=== PATIENT | female | born 1935 | race Caucasian/White ===

== ENCOUNTER 2017-07-12 06:02 | Inpatient (IN) | payer OTHER, MEDICARE ==
[2017-07-12] MEDS ORDERED: LR 1,000 ML IV ONE (06:43)
[2017-07-12] MEDS ORDERED: MIDAZOLAM 2 MG/2 ML VIAL IVP ONE (06:59)
--- NOTE | 2017-07-12 07:00 | PDANEPAE ---
ANE History of Present Illness here for R TKA ANE Past Medical History - Cardiovascular History Hx Hypertension: No Hx Arrhythmias: No Hx Chest Pain: No Hx Coronary Artery / Peripheral Vascular Disease: No Hx CHF / Valvular Disease: No Hx Palpitations: No - Pulmonary History Hx COPD: No Hx Asthma/Reactive Airway Disease: No Hx Recent Upper Respiratory Infection: No Hx Oxygen in Use at Home: No Hx Sleep Apnea: No Sleep Apnea Screening Result - Last Documented: Negative - Neurologic History Hx Cerebrovascular Accident: No Hx Seizures: No Hx Dementia: No - Endocrine History Hx Diabetes: No Obesity: no - Renal History Hx Renal Disorders: No - Liver History Hx Hepatic Disorders: No - Neurological & Psychiatric Hx Hx Neurological and Psychiatric Disorders: No - Cancer History Hx Cancer: No - Congenital Disorder History Hx Congenital Disorders: No - GI History GERD: no Hx Gastrointestinal Disorders: No - Other Health History Other Health History: OSTEOARTHRITIS. BOTTOM OF LT FOOT NUMB - Chronic Pain History Chronic Pain: Yes (RT HIP) - Surgical History Prior Surgeries: ELFEGO TOTAL HIP. ORIF RT WRIST. ORIF RT THUMB WITH POST HARDWARE REMVL. LT WRIST FX. LUMBAR LAMINECTOMY. ELFEGO KNEE SCOPES. TONSILLECTOMY ANE Review of Systems Review of systems is: negative Review of Systems: - Exercise capacity Exercise capacity: >=4 METS METS (RN): 4 METS ANE Patient History - Allergies Allergies/Adverse Reactions: oxycodone HCl [From Percocet] Allergy (Intermediate, Verified 06/26/10 16:19) Constipation ciprofloxacin [From Cipro] Allergy (Verified 07/05/17 16:25) Rash - Home Medications Home Medications: Aspirin EC [Aspirin EC 81 mg (*)] 81 mg PO HS 07/05/17 [Last Taken 07/05/17] C/E/Zn/Cu/OM3/DHA/EPA/LUT/ZEAX [Preservision Areds 2 Softgel] 1 each PO BID [Last Taken 07/05/17] Calcium Carb W/Vit D [Calcium Carb W/Vit D 500/200 (*)] 500 mg PO BID 07/05/17 [ Last Taken 07/05/17] Herbals/Supplements -Info Only 1 ea PO DAILY 07/05/17 [Last Taken 07/05/17] Magnesium Oxide [Magnesium Oxide 400 mg (*)] 400 mg PO DAILY 07/05/17 [Last Taken 07/05/17] Naproxen Sodium [Aleve 220 MG (*)] 220 mg PO BID PRN 07/05/17 [Last Taken ] Psyllium Husk (with Sugar) [Metamucil Packet] 1 each PO DAILY 07/05/17 [Last Taken 07/11/17 08:00] - NPO status NPO Status: no food or drink >8 hours NPO Since - Liquids (Date): 07/12/17 NPO Since - Liquids (Time): 05:00 NPO Since - Solids (Date): 07/11/17 NPO Since - Solids (Time): 22:15 - Smoking Hx Smoking Status: Former smoker ANE Labs/Vital Signs - Vital Signs Blood Pressure: 144/91 Heart Rate: 67 Respiratory Rate: 16 O2 Sat (%): 93 Height: 160.02 cm Weight: 69.4 kg ANE Physical Exam - Airway Neck exam: FROM Mallampati Score: Class 1 - Pulmonary Pulmonary: no respiratory distress - Cardiovascular Cardiovascular: regular rate and rhythym - ASA Status ASA Status: II ANE Anesthesia Plan Anesthesia Plan: spinal
[2017-07-12] MEDS ORDERED: fentaNYL 100 MCG/2 ML INJ ONE ×2 (07:13→08:48)
[2017-07-12] MEDS ORDERED: ACETAMINOPHEN 500 MG TAB PO ONE (07:18)
[2017-07-12] MEDS ORDERED: TRANEXAMIC ACID 3,000 MG in NS 50 ML IRR ONE (07:18)
[2017-07-12] MEDS ORDERED: ceFAZolin 2 GM/DEXTROSE 100 ML IV ONE (07:18)
[2017-07-12] MEDS ORDERED: LIDOCAINE 1% 5 ML, BUPIVACAINE 0.5% 5 ML, morphINE PF 5 MG in SYRINGE 0 ML IU ONE (07:18)
--- NOTE | 2017-07-12 07:18 | PDHPUP ---
History & Physical Update H&P update statement: This history and physical update is based on an assessment of the patient which was completed after admission or registration (within 24 hours), but prior to the surgery/procedure. H&P update: H&P reviewed & patient examined, no change in patient's condition since H&P completed
[2017-07-12] MEDS ORDERED: BUPIVACAINE/EPI 0.5% 30 ML SDV ONE (07:21)
[2017-07-12] MEDS ORDERED: THROMBIN (BOVINE) 5,000 UNIT VIAL TP ONE (07:21)
[2017-07-12] MEDS ORDERED: PHENYLEPHRINE HCL 100 MCG/ML SYR ONE (07:21)
[2017-07-12] MEDS ORDERED: CALCIUM CHLORIDE 1 GM/10 ML INJ ONE (07:21)
[2017-07-12] MEDS ORDERED: epHEDrine SULFATE 10 MG/ML SYR ONE (07:21)
[2017-07-12] MEDS ORDERED: POLYMYXIN B SULFATE 500,000 UNIT/10 ML SYR IRR ONE (07:22)
[2017-07-12] MEDS ORDERED: BACITRACIN 50,000 UNITS/10 ML SYR IRR ONE (07:22)
[2017-07-12] MEDS ORDERED: LR 1,000 ML IV SCH ×2 (07:30→10:00)
[2017-07-12] MEDS ORDERED: CEFAZOLIN 2 GM/DEXTROSE/100 ML BAG IV ONE (07:35)
[2017-07-12] MEDS ORDERED: PROPOFOL/EMULSION 500 MG/50 ML BOTTLE IV ONE (07:38)
[2017-07-12] MEDS ORDERED: PROMETHAZINE HCL 25 MG/ML INJ IVP PRN ×2 (08:24→09:55)
[2017-07-12] MEDS ORDERED: ONDANSETRON 4 MG/2 ML VIAL IVP PRN ×2 (08:24→09:55)
[2017-07-12] MEDS ORDERED: LR 500 ML IV PRN (08:24)
[2017-07-12] MEDS ORDERED: DEXAMETHASONE 4 MG/ML VIAL IVP PRN (08:24)
[2017-07-12] MEDS ORDERED: HYDROmorphONE/DILAUDID 1 MG/ML INJ IVP PRN (08:24)
[2017-07-12] MEDS ORDERED: ALBUTEROL 3 ML DEYVIAL IH PRN (08:24)
[2017-07-12] MEDS ORDERED: fentaNYL 100 MCG/2 ML INJ IVP PRN (08:24)
[2017-07-12] MEDS ORDERED: NALOXONE HCL 0.4 MG/ML INJ IVP PRN (08:24)
[2017-07-12] MEDS ORDERED: ROPI/epINEPH/KETOROLAC/morphINE IU ONE (08:30)
[2017-07-12] MEDS ORDERED: PROPOFOL 200 MG/20 ML VIAL ONE ×3 (08:39→09:42)
[2017-07-12] MEDS ORDERED: diphenhydrAMINE 25 MG CAP PO PRN (09:55)
[2017-07-12] MEDS ORDERED: ONDANSETRON DISINTEGRATING 4 MG TAB PO PRN (09:55)
[2017-07-12] MEDS ORDERED: KETOROLAC 30 MG/1 ML SDV IVP PRN (09:55)
[2017-07-12] MEDS ORDERED: TEMAZEPAM 15 MG CAP PO PRN (09:55)
[2017-07-12] MEDS ORDERED: POLYETHYLENE GLYCOL 3350 17 GM PKT PO PRN (09:55)
[2017-07-12] MEDS ORDERED: BISACODYL 10 MG SUPP PR PRN (09:55)
[2017-07-12] MEDS ORDERED: METOCLOPRAMIDE 10 MG/2 ML VIAL IVP PRN (09:55)
[2017-07-12] MEDS ORDERED: LACTULOSE 20 GM/30 ML UDCUP PO PRN (09:55)
[2017-07-12] MEDS ORDERED: CYCLOBENZAPRINE 10 MG TAB PO PRN (09:55)
[2017-07-12] MEDS ORDERED: TAPENTADOL HCL 50 MG TAB PO PRN (09:55)
[2017-07-12] MEDS ORDERED: PROMETHAZINE HCL 25 MG SUPPR PR PRN (09:55)
[2017-07-12] MEDS ORDERED: MAGNESIUM HYDROXIDE 30 ML UDCUP PO PRN (09:55)
[2017-07-12] MEDS ORDERED: DIPHENOXYLATE/ATROPINE LOMOTIL 1 TAB PO PRN (09:55)
--- NOTE | 2017-07-12 09:55 | POSTOPPROG ---
Post Op Note Date of Operation: 07/12/17 Surgeon: Claudia Hector Emergency Department Director: jolly Anesthesiologist: charisma Anesthesia: Epidural, IV Sedation Pre-op Diagnosis: r hip oa Procedure: r katerina with fluoro Inf/Abcess present in the surg proc area at time of surgery?: No Depth: Deep Incisional (Fascial) EBL: 100-500
--- NOTE | 2017-07-12 11:18 | GOP ---
[f rep st] OPERATIVE REPORT DATE OF OPERATION: 07/12/2017 SURGEON: Claudia Hector MD DIAGNOSTIC MEDICAL SONOGRAPHER: Ricardo Garrison, certified SA, whose presence was medically necessary. ANESTHESIA: Spinal plus IV sedation. PREOPERATIVE DIAGNOSIS: Right hip osteoarthritis. POSTOPERATIVE DIAGNOSIS: Right hip osteoarthritis. PROCEDURE PERFORMED: Right total hip arthroplasty with fluoroscopy. FINDINGS: INDICATIONS: This is an 82-year-old female with a several-month history of right hip pain, worsening with use and with time. Radiographic studies show osteophytic spurring as well as osteoarthritic ch anges at the femoral acetabular junction. She wishes to have surgery in order to resolve the problem . DESCRIPTION OF PROCEDURE: The patient was brought to the operating room after the right side had bee n identified as the correct side by the patient, nurse and physician. Once in the operating room, ken jo was given an epidural nerve block with IV sedation. She was placed on a traction table with a well -padded perineal post. Once positioned, fluoroscopy was used to ensure adequate leg length and proper rotation of her legs. Once done so, the arch table was then locked onto the table. The right hip and flank were sterilely prepped and draped in the usual fashion using GSI solution. Once prepped and draped, a linear incisi on was made starting 2 cm inferior and lateral to the ASIS and heading in a 15 degree posterior direc tion with sharp dissection carried down through the skin and subcutaneous layers, with bleeding contr olled using electrocautery. Dissection was done down onto the fascia overlying the TFL. The TFL fas toño was then incised in line with its fibers, with the muscle belly retracted laterally. The circumf remi vessels at the base of the fascial sheath were identified and cauterized. Deeper dissection was carried down onto the hip capsule, identifying the fat overlying it. Kober retractors were placed in the superior and inferior portions of the femoral neck. A T-incision was made through the capsule w ith stay sutures placed in the superior and inferior leaves, with the Kober retractors placed intra-a rticularly. A pointed Hohmann was placed on the anterior portion of the acetabulum gaining further e xposure. An oscillating saw was used to cut across the femoral neck just above the intertrochanteric line, with an osteotome used to complete the transection. The leg was externally rotated 40 degrees , a corkscrew was placed in the femoral head and the femoral head was able to be removed. The pulvin ar at the base of the acetabulum as well as the labrum around the acetabulum were able to be removed. Then, sequential reamers were used up to a size 51, achieving good bleeding bone and good depth. A 51 trial was noted to fit securely. Therefore, a 52 mm Tritanium hemisphere cup was put into place with a screw placed in the superior and posterior portions of the acetabular cups. The position was checked under fluoroscopy to ensure adequate positioning of the cup. A 32 x 52 liner was then placed . A polyethylene liner was placed in the acetabular cup. Attention was then turned to the femur. The femur was externally rotated to 90 degrees. Soft tissue dissection was done of the anterior and superior femoral neck. Once an adequate capsular release had been done, the leg was able to be dropp ed into extension and adduction. A curette was used to remove medullary bone from the proximal porti on of the femoral neck, and a rongeur was used to remove the superior portion of the femoral neck. A canal finder was passed within the femoral canal and then sequential broaches were introduced up to a size 4, which was noted to fit securely. Trial reduction was performed and noted to have adequate fill of the proximal femur as well as good length. Therefore, the hip was re-dislocated. A size 4 s tem Accolade II from [place] was put into place and noted to fit securely. Multiple reductions were done to ensure proper length. It was decided that a 32 +0 head seemed to fit best. Therefore, the t runnion was washed and dried, and a 32 +0 Biolox head from [place] was put into place. The hip was a ble to be easily reduced. It was noted to be secure. Tranexamic acid was placed within the hip capsule and a joint cocktail was injected in the posterior capsule and around the acetabulum. The capsule was then closed using 0 Vicryl suture in a figure-of- eight type stitch. Once the capsule was closed, plasma gel was injected intra-articularly. Tranexam ic acid was irrigated into the fascial sheath and the TFL fascial sheath was closed using 0 Vicryl godoy ture in a running whipstitch, with plasma gel placed within the sheath. Once the sheath was closed, 0 Vicryl and 2-0 Vicryl suture were used to close the subcutaneous layers with 30 mL of Marcaine bein g injected around the epidermis, and the skin was then closed using 3-0 V-Loc suture in a running sub cuticular stitch. The wound was then dressed with Steri-Strips, Xeroform, 4x4s, and Tegaderm. She w as completely undraped in the operating room, had the perineal post removed and her legs were removed from the leg choe. Her leg lengths were noted to be nearly equal. She was then transferred onto a stretcher and sent to the recovery room in good condition. /[id number]/MODL
[2017-07-12] MEDS: ACETAMINOPHEN 325 MG TAB PO SCH ×2 (12:52→17:39)
[2017-07-12] MEDS: traMADol 50 MG TAB PO SCH ×3 (12:53→21:47)
[2017-07-12 14:59] VITALS: RESP 16
[2017-07-12] MEDS: ceFAZolin 2 GM/DEXTROSE 100 ML IV SCH ×2 (15:48→21:45)
[2017-07-12] MEDS: HYDROCODONE/APAP 5/325 TAB PO PRN ×2 (16:01→21:48)
--- NOTE | 2017-07-12 16:51 | POSTANESTH ---
Post Anesthetic Evaluation Cardiovascular Status: Normal, Stable Respiratory Status: Normal, Stable Level of Consciousness/Mental Status: Can Participate in Eval Pain Control: Adequate, Prn Tx Ordered Nausea/Vomiting Control: Adequate, Prn Tx Ordered Complications Possibly Related to Anesthesia: None Noted
[2017-07-12] MEDS: FAMOTIDINE 20 MG TAB PO SCH (21:44)
[2017-07-12] MEDS: SENNOSIDES/DOCUSATE SODIUM TAB PO SCH (21:44)
[2017-07-13] MEDS: ACETAMINOPHEN 325 MG TAB PO SCH ×3 (00:41→11:17)
[2017-07-13 04:33] LABS: HEMATOCRIT 29.5 % (38.0-47.0); HEMOGLOBIN 9.7 g/dL (12.6-16.3)
[2017-07-13] MEDS: traMADol 50 MG TAB PO SCH ×2 (06:12→11:18)
[2017-07-13] MEDS: HYDROCODONE/APAP 5/325 TAB PO PRN ×2 (06:12→13:39)
[2017-07-13] MEDS: SENNOSIDES/DOCUSATE SODIUM TAB PO SCH (08:54)
[2017-07-13] MEDS: FAMOTIDINE 20 MG TAB PO SCH (08:54)
[2017-07-13] MEDS ORDERED: RIVAROXABAN 10 MG TAB PO SCH (09:00)
--- NOTE | 2017-07-13 09:11 | SOAPPROG ---
SOAP Progress Note Assessment/Plan: Assessment: Plan: -changed dressing today -d/c home today, needs home PT 07/13/17 09:10 07/13/17 09:10 Subjective: Pain is minimal, did PT today feels stable. She would like to go home Objective: Vital Signs Temp Pulse Resp BP Pulse Ox 37.6 C 74 16 106/56 L 96 07/13/17 07:11 07/13/17 07:11 07/13/17 07:11 07/13/17 07:11 07/13/17 07:11 Laboratory Results 07/13/17 04:14 07/12/17 07/13/17 07/14/17 05:59 05:59 05:59 Intake Total 2320 Output Total 1100 200 Balance 1220 -200 Wound small amount of active bleeding superior portion of incision, mild bruising. Compartments soft, nvi, calf nt, neg homman's - Time Spent With Patient Time Spent With Patient: 15 - Pending Discharge Pending Discharge Within 24 Hours: Yes Pending Discharge Within 48 Hours: No Pending Discharge Date: 07/14/17 Pending Discharge Time: 11:00 ICD10 Worksheet Patient Problems: Problems Problem Status Onset Arthritis of right hip Acute - ICD10 Problem Qualifiers (1) Arthritis of right hip
[2017-07-13] MEDS ORDERED: ASPIRIN 81 MG CHEWABLE TAB PO SCH (09:15)
--- NOTE | 2017-07-13 09:18 | PDIAF ---
- Diagnosis Code Status: Full Code - Medication Management Discharge Medications: Medications to Continue on Transfer Aspirin EC [Aspirin EC 81 mg (*)] 81 mg PO HS 07/05/17 [Last Taken 07/05/17] C/E/Zn/Cu/OM3/DHA/EPA/LUT/ZEAX [Preservision Areds 2 Softgel] 1 each PO BID [Last Taken 07/05/17] Calcium Carb W/Vit D [Calcium Carb W/Vit D 500/200 (*)] 500 mg PO BID 07/05/17 [ Last Taken 07/05/17] Herbals/Supplements -Info Only 1 ea PO DAILY 07/05/17 [Last Taken 07/05/17] Magnesium Oxide [Magnesium Oxide 400 mg (*)] 400 mg PO DAILY 07/05/17 [Last Taken 07/05/17] Naproxen Sodium [Aleve 220 MG (*)] 220 mg PO BID PRN 07/05/17 [Last Taken ] Psyllium Husk (with Sugar) [Metamucil Packet] 1 each PO DAILY 07/05/17 [Last Taken 07/11/17 08:00] Aspirin [Aspirin 81mg (*)] 81 mg PO DAILY tab.chew 07/13/17 [Last Taken Unknown ] Hydrocodone/APAP 5/325 [[place] 5/325 (*)] 1 - 2 tab PO Q6H PRN tab 07/13/17 [ Last Taken Unknown] Discharge Medications: Refer to the Discharge Home Medication list for PRN reason. PICC Care - Routine: N/A - Orders Services needed: Physical Therapy Diet Recommendation: no restrictions on diet Diet Texture: Regular Texture Diet Wound Care Instructions: change dressing as needed, may shower over dressing Sutures/Yariel Site: R hip - Follow Up Care Current Providers and Referrals: LARISSA BHATT [Other] Claudia Hector MD [Medical Doctor] - 07/22/17 2:30 pm
--- NOTE | 2017-07-13 10:16 | ASMTCMCOM ---
CM Note CM Note Notes: Pt declines [facility] this am, reports she has support of husb, family and neighbors and will f/u w outpat. [facility] updated. Date Signed: 07/13/2017 10:15 AM Electronically Signed By:SOURAV Richards
[2017-07-13 12:43] VITALS: BP 106/59; PULSE 70; TEMP 98.2; O2SAT 94
--- NOTE | 2017-07-13 16:40 | ASDISCHSUM ---
Discharge Information Plan Status:Home with No Needs Medically Cleared to Leave: Discharge Date:07/13/2017 01:15 PM CM D/C Disposition:Home, Routine, Self-Care ADT D/C Disposition:Home, Routine, Self-Care Projected Discharge Date:07/13/2017 01:15 PM Transportation at D/C: Discharge Delay Reason: Follow-Up Date:07/13/2017 01:15 PM Discharge Slot: Final Diagnosis: Placement Information Patient Contact Information Contact Name:JAK Relationship: Address:[address] [place] [address] City:[place] Phone: [facility]/Zip Code:[place] [address] Email: Financial Information Financial Class: Primary Plan Desc:MEDICARE INPATIENT Primary Plan Number:[id number] Secondary Plan Desc:[employer]/MDR SUPPLEMENT Secondary Plan Number:[id number] Assessment Information CM Strategic Planning Analyst Assessment CJR Did you go to joint Answers: No (why?) Notes: Classes available did n ot class? align with her schedule CM Note CM Note Notes: Maryann will be needing accommodations post surgery. Both her and her have had prior joint surgeries, so she knows what to expect. However, she is planning on discharging home with the assistance of [facility]. Cathy with [facility] has been notified and is following the patient. Maryann was unable to attend the joint class, but she did watch the online video. She will be borrowing a walker from a nearby loan closet. Maryann has three steps leading to her home and is expecting to learn how to climb stairs at the hospital with PT. Date Signed: 07/04/2017 11:42 AM Electronically Signed By:Malka Taylor [facility] CM Progress Note CM Note CM Note Notes: Pt liliana [facility] this am, reports she has support of husb, family and neighbors and will f/u w outpat. [facility] updated. Date Signed: 07/13/2017 10:15 AM Electronically Signed By:SOURAV Richards Intervention Information
== END 2017-07-13 13:15 | disposition home or self-care (01) | DRG 470 ==
LOC: F3N 06:02
PROVIDERS: ADMIT Orthopaedic Surgery; ATTEND Orthopaedic Surgery
PROC: 0SR904Z Replacement of Right Hip Joint with Ceramic on Polyethylene Synthetic Substitute, Open Approach (ICD-10-PCS; principal; 2017-07-12 07:15)
DX: M16.11 Unilateral primary osteoarthritis, right hip (principal)
CPT/HCPCS: 97116-GP; 97161-GP; 97166-GO; 97530-GP; C1713; G8978-GP-CJ; G8979-GP-CI; G8987-GO-CI; G8988-GO-CI; G8989-GO-CI; J0171; J0690; J1885; J2250; J2274; J2370; J2704; J2795; J3010